=== PATIENT | female | born 1985 | race African-American/Black ===

== ENCOUNTER 2024-12-17 07:11 | Emergency (ER) | payer MEDICAID, SELFPAY ==
[2024-12-17 07:21] VITALS: BP 129/89; PULSE 108; RESP 18; TEMP 36.7; O2SAT 98; BMI 29.1
--- NOTE | 2024-12-17 07:30 | XR_ITS ---
Examination: PA lateral chest 2 views TECHNIQUE: Upright PA and lateral chest 2 views Date and time: December 17, 2024 0736 hours INDICATIONS: Chest pain and coughing beginning 3 days ago FINDINGS: Normal heart size. The lungs are clear. The osseous structures are intact IMPRESSION: No active disease
--- NOTE | 2024-12-17 07:41 | EDNOTE_ITS ---
ED SOB =RME/HPI General Chief Complaint: Shortness of Breath/Dyspnea Stated Complaint: SOB, dizzy, vomiting yesterday, abd. pain Time Seen by Provider: 12/17/24 07:30 Source: patient Arrival date/time: 12/17/24 07:11 39-year-old female with a history of asthma presents to the emergency room with a chief complaint of shortness of breath, vomiting, abdominal pain, dizziness x 3 days Mode of arrival: ambulatory Limitations: no limitations Related Data Previous Rx's ?Medication ?Instructions ?Recorded ibuprofen 800 mg tablet 800 mg PO TID PRN pain #30 t abs 01/25/22 acetaminophen 325 mg capsule 650 mg (2 x 325 mg) PO QI D PRN 12/17/24 fever or pain 7 days #30 caps Allergies Allergy/AdvReac Type Severity Reaction Status Date / Time No Known Allergies Allergy Verified 12/17/24 07:18 Review of Systems Review of Systems Systems Reviewed: All systems reviewed, normal except as documented Constitutional Constitutional: Reports system reviewed and no additional complaints, except as documented, Denies fatigue, Denies fever(s), Denies headache(s) and Denies weakness Eyes Eyes: Reports system reviewed and no additional complaints, except as documen delio, Denies blurry vision and Denies change in vision ENT Ears, Nose, Mouth, and Throat: Reports system reviewed and no additional complaints, except as documented, Denies otalgia, Denies headache(s), Denies nasal congestion, Denies throat swelling and Denies vertigo Cardiovascular Cardiovascular: Reports system reviewed and no additional complaints, except as documented, Denies chest pain, Reports dyspnea and Reports dyspnea on exertion Respiratory Respiratory: Reports system reviewed and no additional complaints, except as documented, Reports chest congestion, Reports cough, Reports dyspnea, Reports dyspnea on exertion and Denies wheezing Gastrointestinal Gastrointestinal: Reports system reviewed and no additional complaints, except as documented, Reports abdominal pain, Reports cramping, Reports nausea and Reports vomiting Genitourinary Genitourinary: Reports system reviewed and no additional complaints, except as documented Musculoskeletal Musculoskeletal: Reports system reviewed and no additional complaints, except as documented and Denies back pain Integumentary/Breasts Skin/Breast: Reports system reviewed and no additional complaints, except as documented and Denies wounds Neurologic Neurologic: Reports system reviewed and no additional complaints, except as documented, Denies confusion, Denies headache(s), Denies lack of coordination, Denies vertigo and Denies weakness Psychiatric Psychiatric: Reports system reviewed and no additional complaints, except as documented, Denies anxiety, Denies confusion, Denies depression, Denies paranoia, Denies suicidal ideation and Denies tactile hallucinations Endocrine Endocrine: Reports system reviewed and no additional complaints, except as documented and Denies fatigue Hematologic/Lymphatic Hematologic/Lymphatic: Reports system reviewed and no additional complaints, except as documented and Denies lymphadenopathy Allergic/Immunologic Allergic/Immunologic: Reports system reviewed and no additional complaints, except as documented, Denies throat swelling, Denies urticaria and Denies wheezing ED Exam General Limitations: Present no limitations General appearance: Present alert and in no apparent distress Head Head exam: Present atraumatic Eye Eye exam: Present normal appearance, PERRL and EOMI ENT ENT exam: Present normal exam, normal oropharynx and mucous membranes moist Neck Neck exam: Present normal inspection, full ROM and trachea midline Chest Chest inspection: Present normal inspection and symmetric chest wall rise Respiratory Respiratory exam: Present normal lung sounds bilaterally; Absent respiratory distress, wheezes, stridor, accessory muscle use or prolonged expiratory phase Cardiovascular Cardiovascular exam: Present regular rate, normal rhythm and normal heart sounds Abdominal Exam Abdominal exam: Present soft, tenderness and normal bowel sounds Abdominal tenderness: Present epigastrium and mild Extremities Exam Extremities exam: Present normal inspection and full ROM Back Exam Back exam: Present normal inspection and full ROM Neurological Exam Neurological exam: Present alert, oriented X3 and CN II-XII intact Psychiatric Psychiatric exam: Present normal affect and normal mood Skin Skin exam: Present warm, dry, intact and normal color Course Quality Measures none Orders Category Date Time Status Bedside COVID-19 Antigen Test NOW Care 12/17/24 07:30 Active Bedside Influenza A&B Antigen Test NOW Care 12/17/24 07:30 Completed XR chest 2V Stat Exams 12/17/24 07:30 Completed CBC Stat Lab 12/17/24 08:06 Completed CMP [Comprehensive Metabolic Panel] Stat Lab 12/17/24 08:06 Completed HCG,Qualitative Serum Stat Lab 12/17/24 08:06 Completed Lipase Stat Lab 12/17/24 08:06 Completed Strep A Rapid Stat Lab 12/17/24 07:36 Ordered UA, C/S IF [Urinalysis, C/S if Indicated] Stat Lab 12/17/24 07:42 Ordered Vital Signs Vital signs: Vital Signs Temperature 98.1 F 12/17/24 07:21 Pulse Rate 108 H 12/17/24 07:21 Respiratory Rate 18 12/17/24 07:21 Blood Pressure 129/89 H 12/17/24 07:21 Pulse Oximetry (%) 98 12/17/24 07:21 Oxygen Delivery Method Room Air 12/17/24 07:21 O2 saturation 98% within normal limits Shortness of Breath / Dyspnea MDM Narrative MDM Narrative:: 39-year-old female with a history of asthma presents to the emergency room with a chief complaint of shortness of breath, vomiting, abdominal pain, dizziness x 3 days Patient is hemodynamically stable and in no apparent distress Physical examination shows clear bilateral lung sounds. There is no wheezing stridor or any abnormal breath sounds. The patient has a soft nontender abdomen there is no tenderness to McBurney's point and the patient has a negative Hathaway sign. CBC CMP are within normal limits. The patient tested positive for influenza A and influenza B. Chest x-ray was negative for any pneumonic infiltrates. Patient was discharged and educated to follow-up with primary care provider in the next 24 to 48 hours and return to the emergency room for any evidence of worsening signs or symptoms Patient data External records reviewed:: [facility] previous records Clinical information provided by:: patient Social determinants that could affect healthcare access:: none Patient has the following chronic illnesses:: No chronic illness How is presenting disease/condition affected by chronic disease/condition?: no chronic disease Evaluation data The following diagnostics were reviewed and interpreted by me:: lab results and radiology exam(s) Lab and/or radiology exams considered but not ordered:: Labs and radiology exams considered and ordered Interpretation Summary: N/A Medications / Prescriptions Medications or Prescriptions considered but not ordered:: N/A Medication administrations:: N/A Consultations Consultation(s) initiated? (list below): No Diagnosis Shortness of Breath Differential Diagnosis: congestive heart failure, community acquired pneumonia, asthma with exacerbation and other (Influenza) Most likely diagnosis given after review of the tests above:: Influenza Admission Indicated Admission indicated?: not indicated Admission Request Was there a request for admission?: No Disposition Plan Disposition Plan: Discharge Discharge Attestation Discharge Attestation: The patient and all family members were given an opportunity to ask questions and understood the discharge instructions. Discharge instructions specifically effects, indications for sooner follow up or return to the emergency department, and the expected course of current diagnosis. Patient condition: Stable Discharge Plan Plan Patient Disposition: HOME (Self Care) Discharge Disposition comment: Stable Prescriptions/Referrals Prescriptions/Med Rec: New acetaminophen 325 mg capsule 650 mg PO QID PRN (Reason: fever or pain) 7 Days Qty: 30 0RF No Action ibuprofen 800 mg tablet 800 mg PO TID PRN (Reason: pain) Qty: 30 0RF Referrals: Anthony Arias MD [Primary Care Provider] - In 1 week Problem List Clinical Impression: Influenza A, Influenza B Patient/Caregiver Discharge Instructions Education Materials: The Flu (Influenza), ED Influenza (Adult) Additional Instructions: Please follow-up with your primary care provider in the next 24 to 48 hours. You tested positive for influenza A and B. The treatment for this is symptom management. Please continue to take Tylenol and ibuprofen for fever management. Please increase your oral fluid intake. For any evidence of worsening signs or symptoms please return to the emergency room immediately Print Language: American Stand Alone Forms: Xi Award Info., Work/School Release, Patient Portal Info Letter PA/[employer]ENTICE Supervising Physician PA/CATALINA Supervising Physician: Dr. Clements
[2024-12-17 08:14] LABS: Basophils # (Auto) 0.0 Thou/mm3 (0.0-0.2); Basophils % (Auto) 0 % (0-2.5); Eosinophils # (Auto) 0.0 Thou/mm3 (0.0-0.5); Eosinophils % (Auto) 0 % (0-10); Hematocrit 42.1 % (36.0-46.0); Hemoglobin 14.2 g/dL (12.0-16.0); Immature Granulocytes Auto 0.02 Thou/mm3 (0.00-0.00); Lymphocytes # (Auto) 4.1 Thou/mm3 (1.0-4.8); Lymphocytes % (Auto) 36 % (10-50); Mean Corpuscular HGB Conc 33.7 g/dl (31.0-37.0); Mean Corpuscular Hemoglobin 28.4 pg (25.0-35.0); Mean Corpuscular Volume 84 fL (80-100); Monocytes # (Auto) 0.6 Thou/mm3 (0.0-0.8); Monocytes % (Auto) 5 % (0-12); Neutrophils # (Auto) 6.6 Thou/mm3 (1.8-7.7); Neutrophils % (Auto) 58 % (37-80); Nucleated Red Blood Cell # 0.00 Thou/mm3 (0.00-0.00); Nucleated Red Blood Cell % 0 /100 WBC (0); Platelet Count 406 Thou/mm3 (140-440); RDW Standard Deviation 42.1 fL (36.4-46.3); Red Blood Count 5.00 Miln/mm3 (4.00-5.20); White Blood Count 11.3 Thou/mm3 (3.6-11.0)
[2024-12-17 08:33] LABS: Alanine Aminotransferase 13 U/L (10-49); Albumin, Serum 4.7 gm/dL (3.5-5.0); Albumin/Globulin Ratio 1.6 (1.2-2.2); Alkaline Phosphatase 38 U/L (46-116); Anion Gap 7 (7-16); Aspartate Amino Transferase 20 U/L (0-34); BUN/Creatinine Ratio 16 Ratio (12-20); Bilirubin,Total 0.6 mg/dL (0.3-1.2); Blood Urea Nitrogen 14 mg/dL (9-23); Calcium 8.9 mg/dL (8.3-10.6); Calcium (Corrected) 8.9 mg/dL (8.5-10.1); Carbon Dioxide 29.8 mMol/L (20.0-31.0); Chloride 103 mMol/L (98-107); Creatinine (Component) 0.9 mg/dL (0.6-1.3); Estimated Creatinine Clearance 95.5 mL/min (>60); Globulin 2.9 gm/dL (2.3-3.5); Glucose 87 mg/dL (74-106); Lipase 27 U/L (12-53); Osmolality,Calculated 278 (275-295); Potassium 3.5 mMol/L (3.4-5.1); Sodium 140 mMol/L (136-145); Total Protein 7.6 gm/dL (5.7-8.2); eGFR > 60 See Note
[2024-12-17 08:35] LABS: HCG,Qualitative Serum Negative
== END 2024-12-17 08:52 | disposition home or self-care (01) ==
PROVIDERS: Nurse Practitioner Family; Emergency Provider Emergency Medicine; PCP Family Medicine
DX: J10.1 Influenza due to other identified influenza virus with other respiratory manifestations (principal); J10.2 Influenza due to other identified influenza virus with gastrointestinal manifestations
CPT/HCPCS: 36415; 71046; 80053; 81001; 83690; 84703; 85025; 87400; 87651; 87811; 99283

== ENCOUNTER 2025-05-04 14:12 | Emergency (ER) | payer SELFPAY ==
[2025-05-04 14:13] VITALS: BMI 25.0
[2025-05-04 14:29] VITALS: BP 129/81; PULSE 95; RESP 16; TEMP 37; O2SAT 97
--- NOTE | 2025-05-04 14:33 | XR_ITS ---
EXAMINATION: PA chest single view TECHNIQUE: Upright PA chest single view Date and time: May 04, 2025, 1450 hours, comparison December 17, 2024 INDICATIONS: Nausea vomiting chills fever beginning 3 days ago. FINDINGS: Normal heart size Lungs are clear. Osseous structures intact. IMPRESSION: No active disease
--- NOTE | 2025-05-04 14:33 | XR_ITS ---
Examination: CT brain head without contrast. 2-D sagittal coronal reconstructions Date and time of exam: May 04, 2025, 1721 hours INDICATIONS: Dizziness and vomiting beginning 2 days ago CTDI: vol (mGy): 47.3 DLP: (mGycm): 901 Technique: Multiple CT axial sections of the brain have been obtained, 5 mm slice thickness. Contrast has not been administered. 2-D sagittal, coronal reconstructions have been obtained Low dose protocols were performed. One or more of the following dose reduction techniques were used; automated exposure control, adjustment of the mA and/or KV according to patient size, use of iterative reconstruction technique. Findings: No significant ventricular enlargement. Intra-axial or extra-axial hemorrhage density is not seen. No mass effect or midline shift Basal cisterns are not remarkable. Fourth ventricle is midline. Cranial vault intact. Impression: Negative for acute hemorrhage, mass effect or midline shift
--- NOTE | 2025-05-04 14:33 | XR_ITS ---
Examination: CT abdomen and pelvis without contrast. Coronal 3-D reconstructions. Sagittal 2-D reconstructions. Date and time of exam: May 04, 2025, 1721 hours INDICATIONS: Abdominal pain and vomiting beginning 2 days ago CTDI: vol (mGy): 8.09 DLP: (mGycm): 483 Technique: Axial images of the abdomen have been obtained, 3 mm slice thickness Intravenous contrast material has not been administered. Low dose protocols were performed. One or more of the following dose reduction techniques were used; automated exposure control, adjustment of the mA and/or KV according to patient size, use of iterative reconstruction technique. Findings: No visualized liver or splenic lesion No gallstones No pancreatic or adrenal mass No renal or ureteral calculi, no hydronephrosis Aorta normal size Small lymph nodes in the right lower mesentery Normal appendix coronal image 28 No pericecal inflammatory change No bowel obstruction Suspicious for 30 mm left adnexal cyst Contracted urinary bladder Osseous structures are intact IMPRESSION: Normal appendix No bowel obstruction Recommend pelvic sonography to confirm 30 mm left adnexal cyst
--- NOTE | 2025-05-04 14:34 | PD.EDRME ---
Rapid Medical Screening Exam RME Arrival date/time: 05/04/25 14:12 39-year-old female presents to the emergency department today for multiple complaints patient reports headache, left-sided abdominal pain cough and congestion Chief Complaint: Headache Time Seen by Provider: 05/04/25 17:50 Vital signs: Vital Signs Temperature 98.6 F 05/04/25 14:29 Pulse Rate 95 05/04/25 14:29 Respiratory Rate 16 05/04/25 14:29 Blood Pressure 129/81 05/04/25 14:29 Pulse Oximetry (%) 97 05/04/25 14:29 Oxygen Delivery Method Room Air 05/04/25 14:29 Vital signs reviewed by provider: Yes Exam: On exam well-appearing does not appear ill or toxic Clinical Impression: Labs and imaging obtained
[2025-05-04] MEDS: METOCLOPRAMIDE 5 MG TABLET 10 MG PO (14:48)
[2025-05-04] MEDS: ACETAMINOPHEN 500 MG TABLET 1000 MG PO (14:48)
[2025-05-04 15:06] LABS: Basophils # (Auto) 0.0 Thou/mm3 (0.0-0.2); Basophils % (Auto) 0 % (0-2.5); Eosinophils # (Auto) 0.0 Thou/mm3 (0.0-0.5); Eosinophils % (Auto) 0 % (0-10); Hematocrit 39.7 % (36.0-46.0); Hemoglobin 13.0 g/dL (12.0-16.0); Immature Granulocytes Auto 0.04 Thou/mm3 (0.00-0.00); Lymphocytes # (Auto) 2.9 Thou/mm3 (1.0-4.8); Lymphocytes % (Auto) 23 % (10-50); Mean Corpuscular HGB Conc 32.7 g/dl (31.0-37.0); Mean Corpuscular Hemoglobin 27.9 pg (25.0-35.0); Mean Corpuscular Volume 85 fL (80-100); Monocytes # (Auto) 0.8 Thou/mm3 (0.0-0.8); Monocytes % (Auto) 7 % (0-12); Neutrophils # (Auto) 8.6 Thou/mm3 (1.8-7.7); Neutrophils % (Auto) 70 % (37-80); Nucleated Red Blood Cell # 0.00 Thou/mm3 (0.00-0.00); Nucleated Red Blood Cell % 0 /100 WBC (0); Platelet Count 333 Thou/mm3 (140-440); RDW Standard Deviation 40.9 fL (36.4-46.3); Red Blood Count 4.66 Miln/mm3 (4.00-5.20); White Blood Count 12.4 Thou/mm3 (3.6-11.0)
[2025-05-04 15:24] LABS: Alanine Aminotransferase 15 U/L (10-49); Albumin, Serum 4.7 gm/dL (3.5-5.0); Albumin/Globulin Ratio 1.8 (1.2-2.2); Alkaline Phosphatase 41 U/L (46-116); Anion Gap 7 (7-16); Aspartate Amino Transferase 27 U/L (0-34); BUN/Creatinine Ratio 14 Ratio (12-20); Bilirubin,Total 0.6 mg/dL (0.3-1.2); Blood Urea Nitrogen 11 mg/dL (9-23); Calcium 9.0 mg/dL (8.3-10.6); Calcium (Corrected) 9.0 mg/dL (8.5-10.1); Carbon Dioxide 28.0 mMol/L (20.0-31.0); Chloride 108 mMol/L (98-107); Creatinine (Component) 0.8 mg/dL (0.6-1.3); Estimated Creatinine Clearance 93.6 mL/min (>60); Globulin 2.6 gm/dL (2.3-3.5); Glucose 92 mg/dL (74-106); Lipase 23 U/L (12-53); Osmolality,Calculated 284 (275-295); Potassium 3.6 mMol/L (3.4-5.1); Sodium 143 mMol/L (136-145); Total Protein 7.3 gm/dL (5.7-8.2); eGFR > 60 See Note
[2025-05-04 16:35] VITALS: BP 139/85; PULSE 79; RESP 20; TEMP 37; O2SAT 100
[2025-05-04 16:49] LABS: Collection Type, Urine Clean Catch
[2025-05-04 17:01] LABS: HCG Qualitative,Urine Negative
[2025-05-04 17:02] LABS: Bacteria,Urine Rare; Bilirubin,Urine Negative (Negative); Blood,Urine Negative (Negative); Color,Urine Yellow (Lt Yel-Yel); Culture Indicated,Urine Not Indicated; Glucose, Urine Negative (Negative); Hyaline Casts,Urine < 1 /hpf (0-1); Ketones,Urine 1+ (Negative); Leukocyte Esterase,Urine Negative (Negative); Nitrite,Urine Negative (Negative); PH,Urine 6.5 (5.0-7.0); Protein,Urine 1+ (Neg - Trace); RBC,Urine 2 /hpf (0-3); Specific Gravity,Urine 1.028 (1.001-1.035); Squamous Epithelial Cell,Urine 44 /hpf (0-5); Urobilinogen,Urine Negative mg/dL (0.0-1.0); WBC,Urine 2 /hpf (0-5)
[2025-05-04 17:15] LABS: Clarity,Urine Hazy (Clear/Hazy)
--- NOTE | 2025-05-04 18:15 | EDNOTE_ITS ---
ED Headache RME/HPI General Chief Complaint: Headache Stated Complaint: HEADACHE, N/V X3 DAYS WITH DIZZINESS Time Seen by Provider: 05/04/25 17:50 Arrival date/time: 05/04/25 14:12 39-year-old female patient with no past medical history, came in for evaluation regarding headache. Patient has been having headache for the last few days associated with nausea, vomiting, not feeling well, and also complaining of left lower quadrant pain. Pain is described as pulsating, severity moderate. No fever noted no dysuria no diarrhea and no other complaints noted. RME / HPI RME / HPI Narrative: 05/04/25 14:12 39-year-old female presents to the emergency department today for multiple complaints patient reports headache, left-sided abdominal pain cough and congestion Exam: On exam well-appearing does not appear ill or toxic Impression: Labs and imaging obtained Related Data Previous Rx's ?Medication ?Instructions ?Recorded ibuprofen 800 mg tablet 800 mg PO TID PRN pain #30 t abs 01/25/22 famotidine 40 mg tablet (Pepcid) 40 mg PO BID #20 tabs 05/04/25 ibuprofen 800 mg tablet 800 mg PO Q8H PRN pain #30 t abs 05/04/25 ondansetron HCl 4 mg tablet 4 mg PO Q8H PRN nausea and 05/04/25 vomiting 5 days #20 tabs Allergies Allergy/AdvReac Type Severity Reaction Status Date / Time No Known Allergies Allergy Verified 05/04/25 14:17 Review of Systems Review of Systems Narrative Review of Systems: Review of system reviewed and within normal limits except mentioned in HPI ED Exam Narrative Physical exam: VITAL SIGNS: Reviewed. GENERAL APPEARANCE: Alert and interactive, follows commands, no acute distress, HEAD AND FACE: Non-traumatic. ENT: PERRL, pink conjunctivitis, eyelid no trauma, Mucous membrane moist. NECK: Supple, nontender, no nuchal rigidity. CHEST: No tenderness, no crepitus, no paradoxical movement, no retractions. LUNGS: Clear, well ventilated, symmetric, no rales, no wheezing, no ronchi, no stridor, good breath sounds bilaterally. HEART: Regular rate, regular rhythm, no murmur, no gallops. ABDOMEN: Soft, positive bowel sounds, nondistended, no guarding, left lower quadrant tenderness, no rebound, no masses, RECTAL: Deferred. GENITAL: Deferred. NEUROLOGICAL: Gross motor function intact sensory function intact, Appropriate for age. MUSCULOSKELETAL: low back nontender, full range of motion. EXTREMITIES: Nontender, full range of motion. SKIN: Color pink, dry, no rash, no lacerations, no abrasions, no contusions. LYMPHATICS: Deferred. Course Quality Measures none Orders Category Date Time Status CT abdomen pelvis wo con Stat Exams 05/04/25 14:[address] head/brain wo con Stat Exams 05/04/25 14:33 Completed XR chest 1V portable Stat Exams 05/04/25 14:33 Completed CBC Stat Lab 05/04/25 14:46 Completed Comprehensive Metabolic Panel Stat Lab 05/04/25 14:46 Completed HCG Qualitative,Urine Stat Lab 05/04/25 16:40 Completed Lipase Stat Lab 05/04/25 14:46 Completed UA, C/S IF [Urinalysis, C/S if Indicated] Stat Lab 05/04/25 16:40 Completed Acetaminophen Tab [Tylenol ES Tab] Med 05/04/25 14:34 Discontinued 1,000 mg PO X1 ONE Famotidine Inj [Pepcid Inj] Med 05/04/25 18:14 Discontinued 20 mg IVP X1 ONE Ketorolac Inj [Toradol Inj] Med 05/04/25 18:14 Discontinued 30 mg IVP X1 ONE Metoclopramide [Reglan] Med 05/04/25 14:34 Discontinued 10 mg PO X1 ONE Ondansetron Inj [Zofran Inj] Med 05/04/25 18:14 Discontinued 4 mg IVP X1 ONE Ringers Lactated 1000 ml [Lactated Ringers] 1,000 ml Med 05/04/25 18:14 Discontinued IV 999 mls/hr Vital Signs Vital signs: Vital Signs Temperature 98.6 F 05/04/25 14:29 Pulse Rate 95 05/04/25 14:29 Respiratory Rate 16 05/04/25 14:29 Blood Pressure 129/81 05/04/25 14:29 Pulse Oximetry (%) 97 05/04/25 14:29 Oxygen Delivery Method Room Air 05/04/25 14:29 Headache MDM Narrative MDM Narrative:: 39 yo female patient with no past medical history, came in for evaluation regarding headache. Patient has been having headache for the last few days associated with nausea, vomiting, not feeling well, and also complaining of left lower quadrant pain. Pain is described as pulsating, severity moderate. No fever noted no dysuria no diarrhea and no other complaints noted. CT scan of the head came back unremarkable. CT scan of the abdomen pelvis came back with no acute pathology except for left adnexal cyst. Chest x-ray also came back normal. The rest of the labs unremarkable. Results discussed with the patient. Patient was advised to closely follow-up with PCP and for referral to [facility] regarding left adnexal cyst. Patient agrees with the plan. Patient was given IV fluids, Pepcid, Tylenol, Toradol IV fluids and Reglan with significant improvement of symptoms Stable for discharge home Patient data External records reviewed:: None Clinical information provided by:: patient Social determinants that could affect healthcare access:: none Patient has the following chronic illnesses:: None How is presenting disease/condition affected by chronic disease/condition?: no chronic disease Evaluation data The following diagnostics were reviewed and interpreted by me:: lab results and radiology exam(s) Lab and/or radiology exams considered but not ordered:: None Interpretation Summary: See above Medications / Prescriptions Medications or Prescriptions considered but not ordered:: None Medication administrations:: Medication Administration History Discontinued Medications Acetaminophen (Acetaminophen 500 Mg Tablet) 1,000 mg PO X1 ONE Stop: 05/04/25 14:35 Last Admin: 05/04/25 14:48 Dose: 1,000 mg Documented By: RAHUL Famotidine (Famotidine Inj 10 Mg/Ml Vial 2 Ml) 20 mg IVP X1 ONE Stop: 05/04/25 18:15 Last Admin: 05/04/25 18:49 Dose: 20 mg Documented By: ROBEL Lactated Ringer's (Lactated Ringers) 1,000 mls @ 999 mls/hr IV .Q1H1M ONE Stop: 05/04/25 19:14 Last Infusion: 05/04/25 20:00 Dose: Infused Documented By: Admin: 05/04/25 18:49 Dose: 999 mls/hr Documented By: ROBEL Ketorolac Tromethamine (Ketorolac Inj 30 Mg/Ml Vial) 30 mg IVP X1 ONE Stop: 05/04/25 18:15 Last Admin: 05/04/25 18:46 Dose: 30 mg Documented By: ROBEL Metoclopramide HCl (Metoclopramide 5 Mg Tablet) 10 mg PO X1 ONE Stop: 05/04/25 14:35 Last Admin: 05/04/25 14:48 Dose: 10 mg Documented By: RAHUL Ondansetron HCl (Ondansetron Inj 2 Mg/Ml Inj 2 Ml) 4 mg IVP X1 ONE; Protocol Stop: 05/04/25 18:15 Last Admin: 05/04/25 18:45 Dose: 4 mg Documented By: JT See above Consultations Consultation(s) initiated? (list below): No Diagnosis Differential diagnosis headache: headache and other (Abdominal pain, ovarian cyst) Most likely diagnosis given after review of the tests above:: Headache, adnexal cyst Admission Indicated Admission indicated?: not indicated Admission Request Was there a request for admission?: No Disposition Plan Disposition Plan: Discharge Discharge Attestation Discharge Attestation: The patient was given an opportunity to ask questions and understood the discharge instructions. Discharge instructions specifically effects, indications for sooner follow up or return to the emergency department, and the expected course of current diagnosis. Patient condition: Stable Discharge Plan Plan Patient Disposition: HOME (Self Care) Discharge Disposition comment: Stable Prescriptions/Referrals Prescriptions/Med Rec: New famotidine [Pepcid] 40 mg tablet 40 mg PO BID Qty: 20 0RF ibuprofen 800 mg tablet 800 mg PO Q8H PRN (Reason: pain) Qty: 30 0RF ondansetron HCl 4 mg tablet 4 mg PO Q8H PRN (Reason: nausea and vomiting) 5 Days Qty: 20 0RF No Action ibuprofen 800 mg tablet 800 mg PO TID PRN (Reason: pain) Qty: 30 0RF Referrals: No Primary/Family,Physician [Primary Care Provider] - In 1 week Problem List Clinical Impression: Headache, Adnexal cyst Patient/Caregiver Discharge Instructions Discharge Activity: activity as tolerated Education Materials: Self-Care for Headaches Additional Instructions: Thank you for the opportunity for serving you today. You are stable for discharged . You are advised to: Follow-up with your PCP in 1 to 2 days as per referral to [facility] regarding your left adnexal cyst Return to ED for worsening of symptoms Increase oral fluids Take medication as prescribed Print Language: Brazilian Stand Alone Forms: Xi Award Info., Patient Portal Info Letter AFUA/CATALINA Supervising Physician AFUA/CATALINA Supervising Physician: Dr Burris
[2025-05-04] MEDS: ONDANSETRON INJ 2 MG/ML INJ 2 ML 4 MG IVP (18:45)
[2025-05-04] MEDS: KETOROLAC INJ 30 MG/ML VIAL IVP (18:46)
[2025-05-04] MEDS: FAMOTIDINE INJ 10 MG/ML VIAL 2 ML 20 MG IVP (18:49)
[2025-05-04] MEDS: RINGERS LACTATED 1000 ML 1,000 ML 999 ML IV (18:49)
[2025-05-04 19:15] VITALS: BP 126/61; PULSE 54; RESP 19; TEMP 36.8; O2SAT 100
[2025-05-04 21:25] VITALS: BP 120/42; PULSE 59; RESP 18; TEMP 36.8; O2SAT 100
== END 2025-05-04 21:25 | disposition home or self-care (01) ==
PROVIDERS: Nurse Practitioner Primary Care; Emergency Provider Emergency Medicine
DX: R51.9 Headache, unspecified (principal); N83.209 Unspecified ovarian cyst, unspecified side
CPT/HCPCS: 36415; 70450; 71045; 74176; 80053; 81001; 81025; 83690; 85025; 96361; 96374; 96375; 99284; J1885; J2405; J3490; J7120; A9270